=== PATIENT | male | born 1995 | race Caucasian/White ===

== ENCOUNTER 2018-06-10 06:49 | Emergency (ER) | payer OTHER | END 2018-06-10 08:25 | disposition home or self-care (01) | LOC: M ED 06:49 | DX: S93.402A Sprain of unspecified ligament of left ankle, initial encounter (principal); X50.1XXA Overexertion from prolonged static or awkward postures, initial encounter; Y92.89 Other specified places as the place of occurrence of the external cause | CPT/HCPCS: 73610 ==

== ENCOUNTER 2019-04-28 02:33 | Emergency (ER) | payer OTHER ==
[~2019-04-28] VITALS: Ht 205.7 cm; Wt 81.0 kg
[~2019-04-28 02:33] MED LIST: NAPR-837 PO
--- NOTE | 2019-04-28 19:22 | ECGEPIP ---
[facility] - ED Test Date: 2019-04-28 Pat Name: OFELIA JOHNSON Department: Room: - Gender: Male Correspondence Review Clerk: : 1995 Requested By: Nirali Read Order Number: [id number] Reading MD: Nirali Read Measurements Intervals [place] Rate: 42 P: 52 ID: [id number] QRS: 59 QRSD: 92 T: 50 QT: 416 QTc: 351 Interpretive Statements SINUS BRADYCARDIA EARLY REPOLARIZATION NO PRIOR Electronically Signed on 04-28-2019 19:21:39 EDT by Nirali Read
[2019-04-29 08:37] VITALS: BP 129/71
[2019-05-14] MEDS ORDERED: BUPR150T3 PO (11:02)
== END 2019-04-29 08:39 ==
LOC: M ED 02:33
DX: R45.851 Suicidal ideations (principal); R00.1 Bradycardia, unspecified; F10.10 Alcohol abuse, uncomplicated

== ENCOUNTER → 2020-01-25 | Outpatient (CLI) | payer OTHER ==
[~2020-01-25] MED LIST changes: +BUPR150T3 PO
== END ==
LOC: M OUTALCOH 09:16
PROVIDERS: ATTEND Psychiatry & Neurology Addiction Medicine
DX: Z02.2 Encounter for examination for admission to residential institution (principal)

== ENCOUNTER 2020-01-31 07:58 | Outpatient (RCR) | payer OTHER | END 2020-02-16 | LOC: M OUTALCOH 07:58 | PROVIDERS: ATTEND Psychiatry & Neurology Addiction Medicine | DX: Z03.89 Encounter for observation for other suspected diseases and conditions ruled out (principal); F17.200 Nicotine dependence, unspecified, uncomplicated ==